=== PATIENT | female | born 1990 | race Caucasian/White ===

== ENCOUNTER 2023-09-02 09:40 | Outpatient (CLI) | payer BC, SELFPAY ==
--- NOTE | 2023-09-02 10:00 | CRLHL7_ITS ---
For Patients: As a result of the Cures Act, medical imaging exams and procedure reports are released immediately into your electronic medical record. You may view this report before your referring provider. If you have questions, please contact your health care provider. Indication: Hip pain Technique: Pelvis and right hip 3 views Comparison: None Findings: Prominent spur formation at the superolateral right femoral head with associated slight flattening of the superolateral femoral subchondral bone. The right acetabular angle is increased with incomplete coverage. SI joints normal. Intact pubic rami. Bone island right femoral neck. 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 Dictated by Pasquale Gibson MD @ 09/02/2023 11:16:20 AM (Electronically Signed)
== END 2023-09-02 09:41 | disposition home or self-care (01) ==
LOC: RAD 09:44
PROVIDERS: Visit Provider Family Medicine
DX: M25.551 Pain in right hip (principal); Q65.89 Other specified congenital deformities of hip
CPT/HCPCS: 73502

== ENCOUNTER 2023-11-28 13:42 | Outpatient (CLI) | payer BC, SELFPAY ==
--- NOTE | 2023-11-28 13:45 | MR_ITS ---
[address] [address] Phone:?[phone] Fax:?[phone] Referring Physician Information: Koko Eden M.D. [address] [place] [id number] Phone:?[phone] Fax:?[phone] Patient:Nhan Quiñones D.O.B:?1990 Sex:?Female Phone:?[phone] [facility] MRN:?[id number] Exam Date:?11/28/2023 EXAM: MRI of the RIGHT HIP, without contrast CLINICAL HISTORY: Ongoing right hip pain. Evaluate osteoarthritis. COMPARISONS: Plain radiographs 09/02/2023. TECHNICAL: MR sequences of the right hip: Axials: PD FS Axial oblique: PD Coronals: PD, T2 Coronal pelvis: T1 and STIR Sagittals: PD and T2 CONTRAST: None SEDATION: None FINDINGS: Pelvis osseous structures: Sacrum: No fracture or destructive osseous lesion is seen of the imaged portions of the sacrum. Sacroiliac joints: Moderate arthritic changes of the anteroinferior aspect of the left sacroiliac joint and mild arthritic changes of the anteroinferior aspect of the right sacroiliac joint may be degenerative in etiology although inflammatory sacroiliitis is not excluded by the imaging appearance. Pubic rami: Unremarkable. Symphysis pubis: There is no evidence of acute osteitis pubis. Labrum: There is complex tearing of the anterosuperior and anterior portion of the right hip labrum and fraying of most of the remainder of the right hip labrum. Hip joint: Physiologic amount of joint fluid. There is extensive near full-thickness and full-thickness chondral loss over the right acetabulum and femoral head greatest anterosuperiorly with associated subchondral cystic changes within both the femoral head and acetabulum. Proximal femur: No fracture, osseous stress injury, avascular necrosis, or suspicious bone marrow signal abnormality is seen. There is right femoral head neck junction osteophytosis. Acetabulum: Coverage: Right lateral center edge (CE) angle measures approximately 16? correcting for coronal pelvic tilt, midline coronal series 5 image 14. Ligamentum teres: Ill-defined partial tearing of the right hip ligamentum teres. Myotendinous structures: Gluteus abductors: The gluteus minimus and medius tendons are unremarkable. Rectus abdominis-adductor longus aponeurosis, adductors, and rectus abdominis: Unremarkable. Hamstrings: Unremarkable. Flexors: The iliopsoas and rectus femoris tendons are intact. Quadratus femoris muscle: Unremarkable. Piriformis muscle: Unremarkable. Gluteal aponeurotic fascia and IT band: Unremarkable. Pelvic soft tissues: There is a probable hemorrhagic right ovarian cyst. IMPRESSION: 1. Marked right hip osteoarthritis with extensive near full-thickness and full- thickness chondral loss over both the acetabulum and femoral head greatest anterosuperiorly, associated subchondral cystic changes within both the femoral head and acetabulum, complex tearing and fraying of most of the right hip labrum, and femoral head neck junction osteophytosis. 2. Right acetabular dysplasia. 3. Moderate arthritic changes of the anteroinferior aspect of the left sacroiliac joint and mild arthritic changes of the anteroinferior aspect of the right sacroiliac joint may be degenerative in etiology although inflammatory sacroiliitis is not excluded by the imaging appearance. 4. Ill-defined partial tearing of the right hip ligamentum teres. 5. No fracture, osseous stress injury, or tendinous pathology of the right hip. RCB Electronically signed on 11/28/2023 4:55:00 PM by Chang Joe M.D.
== END 2023-11-28 13:43 | disposition home or self-care (01) ==
PROVIDERS: Visit Provider Orthopaedic Surgery
DX: M25.551 Pain in right hip (principal); M16.11 Unilateral primary osteoarthritis, right hip; S73.191A Other sprain of right hip, initial encounter
CPT/HCPCS: 73721

== ENCOUNTER 2024-11-20 06:02 | Day surgery (SDC) | payer BC, SELFPAY ==
[2024-11-20] VITALS (43 sets, daily range): BP systolic 69–120; BP diastolic 41–88; PULSE 62–116; RESP 12–22; TEMP 36.3–37.4; O2SAT 89–100; BMI 23.5
[2024-11-20 06:35] LABS: Ur HCG Qualitative* Negative (Negative)
[2024-11-20] MEDS: LACTATED RINGERS 1000 ML 1,000 ML 100 ML IV ×3 (06:40→11:35)
[2024-11-20] MEDS: SODIUM CHLORIDE 0.9 % (FLUSH) 10 ML SYRINGE IVF ×2 (06:40→11:00)
[2024-11-20] MEDS: ACETAMINOPHEN 500 MG TABLET 1000 MG PO ×3 (07:08→20:41)
[2024-11-20] MEDS: OXYCODONE (CR) 10 MG TAB.ER.12H PO (07:08)
[2024-11-20] MEDS: CELECOXIB 200 MG CAPSULE PO (07:08)
[2024-11-20] MEDS: MIDAZOLAM HCL 1 MG/ML inj IVP (07:13)
--- NOTE | 2024-11-20 07:13 | SUR.PREOP ---
TIME?OUT:?0710 PT/RN/MDA?VERIFICATION?OF?SURGICAL?SITE,?PROCEDURE,?AND?CONSENT OBTAINED?PRIOR?TO?INVASIVE?PROCEDURE.
--- NOTE | 2024-11-20 07:15 | CRLHL7_ITS ---
For Patients: As a result of the Cures Act, medical imaging exams and procedure reports are released immediately into your electronic medical record. You may view this report before your referring provider. If you have questions, please contact your health care provider. Indication: Hip replacement surgery Technique: AP hip fluoroscopic images fluoroscopy time 110.3 seconds. Findings/Impression: Hardware from a right total hip arthroplasty is in satisfactory position. Dictated by Pasquale Gibson MD @ 11/20/2024 10:07:58 AM (Electronically Signed)
--- NOTE | 2024-11-20 07:21 | P.ANES_ITS ---
Anesthesia Charges Start Date/Time Anesthesia Start Date: 11/20/24 Anesthesia Start Time: 07:22 Stop Date/Time Anesthesia Stop Date: 11/20/24 Anesthesia Stop Time: 10:37 Coding CPT Codes CPT Codes: ANESTH HIP ARTHROPLASTY - 59534 ([id number]) P1 - NORMAL HEALTHY PATIENT, QK - DATABASE SECURITY EXPERT 2-4 CNCRNT FERNANDA PROC, QX - DIRECTOR OF EMPLOYEE DEVELOPMENT SVSivan W/ MED DIRECTION
--- NOTE | 2024-11-20 07:21 | W.ANESCHARGE ---
Anesthesia Charges Start Date/Time Anesthesia Start Date: 11/20/24 Anesthesia Start Time: 07:22 Stop Date/Time Anesthesia Stop Date: 11/20/24 Anesthesia Stop Time: 10:37 Coding CPT Codes CPT Codes: ANESTH HIP ARTHROPLASTY - 58365 ([id number]) P1 - NORMAL HEALTHY PATIENT, QK - AUTOMOTIVE SALES SPECIALIST 2-4 CNCRNT FERNANDA PROC, QX - HEALTH POLICY NURSE SVSivan W/ MED DIRECTION
--- NOTE | 2024-11-20 07:22 | P.NB_ITS ---
Nerve Block Nerve Block Time Seen by Provider: 07:17 Date Seen: 11/20/24 Type of block requested by surgeon for post-operative analgesia: KATHY/LFCN Side: right Time out performed: Yes Verification of patient name: Yes Verification of date of : Yes Site marking: site marked Name of person performing procedure: Be Continuous monitoring Was continuous monitoring of O2 sat, B/P, surveillance monitor, recorded every 15 minutes?: Yes Procedure Checklist: sterile prep, needles and gloves Ultrasound guided. Images saved: Yes Medications given in 5ml increments after negative aspiration: Marcaine %: 0.25 mL: 15 and Exparel mL: 10 Patient tolerated procedure well: Yes Additional comments: Needle noted below psoas tendon needle noted adjacent to LFCN Block Charges Block Charge (with Pro Fee): Other Periph Nerve Block Use of Ultrasound Machine for Block: Yes- US Guidance/pain block
[2024-11-20] MEDS: TRANEXAMIC ACID 100 MG/ML INJ 1000 MG IV (07:35)
--- NOTE | 2024-11-20 10:19 | CRLHL7_ITS ---
For Patients: As a result of the Cures Act, medical imaging exams and procedure reports are released immediately into your electronic medical record. You may view this report before your referring provider. If you have questions, please contact your health care provider. Indication: Postop SHARLENE Technique: AP hip centered pelvis and lateral view right hip Findings/Impression: Hardware from a right total hip arthroplasty is in satisfactory position. Bone alignment is normal. No sign of acute fracture. Postop changes are within normal limits. Dictated by Pasquale Gibson MD @ 11/20/2024 11:47:22 AM (Electronically Signed)
--- NOTE | 2024-11-20 10:39 | P.ANES_ITS ---
Anesthesia Charges Start Date/Time Anesthesia Start Date: 11/20/24 Anesthesia Start Time: 07:22 Stop Date/Time Anesthesia Stop Date: 11/20/24 Anesthesia Stop Time: 10:37 Coding CPT Codes CPT Codes: ANESTH HIP ARTHROPLASTY - 23319 ([id number]) P1 - NORMAL HEALTHY PATIENT, QK - ADMINISTRATOR PESTICIDE 2-4 CNCRNT FERNANDA PROC, QX - WAREHOUSE ATTENDANT SVSivan W/ MED DIRECTION
--- NOTE | 2024-11-20 10:39 | W.ANESCHARGE ---
Anesthesia Charges Start Date/Time Anesthesia Start Date: 11/20/24 Anesthesia Start Time: 07:22 Stop Date/Time Anesthesia Stop Date: 11/20/24 Anesthesia Stop Time: 10:37 Coding CPT Codes CPT Codes: ANESTH HIP ARTHROPLASTY - 63764 ([id number]) P1 - NORMAL HEALTHY PATIENT, QK - ACTUARIAL DIRECTOR 2-4 CNCRNT FERNANDA PROC, QX - COAT FITTER SVSivan W/ MED DIRECTION
--- NOTE | 2024-11-20 10:40 | P.ORPRC_ITS ---
Procedure Note Date of procedure: 11/20/24 Procedure: PREOPERATIVE DIAGNOSIS: Right hip osteoarthritis POSTOPERATIVE DIAGNOSIS: Right hip osteoarthritis NAME OF OPERATION: Right total hip arthroplasty SURGEON: Koko Eden MD WEB CONTENT MANAGER: Palma Martinez PA-C, MARIA G Khoury IMPLANTS: 1. [employer] Benld # 48 sector ingrowth cup 2. 32 x 48 +4 neutral polyethylene 3. Actis # 3 standard collared ingrowth stem 4. 32 + 1 ceramic femoral head ANESTHESIA: Spinal ESTIMATED BLOOD LOSS: 1250 cc COMPLICATIONS: None SPECIMENS: None DRAINS: None PREOPERATIVE ANTIBIOTICS: Ancef 1 g INDICATIONS: The patient is a 34-year-old with a longstanding history of severe , unrelenting right hip pain secondary to end-stage right hip osteoarthritis. Despite appropriate nonoperative management, including activity modification, use of an assist device, anti-inflammatories, [id number] pain medication, physical therapy and injections, they continue to have pain and disability. Operative intervention was offered. The risks, benefits and expected outcomes were discussed in detail. These included but were not limited to: Infection, bleeding, injury to blood vessel or nerve, venous thromboembolism. All questions were answered to their satisfaction. Use of an liaison inspection laboratory assistant was necessary throughout the case for patient positioning and safety, soft tissue retraction and closure. PROCEDURE: The patient was placed supine on the Champion table. General anesthesia was administered. The liaison inspection laboratory assistant made sure the patient was properly positioned. The right hip was prepped and draped in the usual sterile fashion. The image intensifier was brought in for a perfect AP pelvis and a perfect double tear drop AP view of each hip which were used for intraoperative templating with our fluoroscopic guide. A bikini incision was made, parallel to the hip flexion crease. The liaison inspection laboratory assistant retracted the soft tissues to protect them. Subcutaneous dissection was taken with electrocautery to the superficial fascia. The fascia was divided in line with the incision. Blunt dissection was carried medially to the tensor fascia leobardo and sartorius interval. Deep dissection was carried with electrocautery. The circumflex vessels were cauterized and divided. The capsule was exposed and then divided in a T-fashion, tagged with #1 FiberWire sutures. Retractors were placed in the joint, held by the liaison inspection laboratory assistant. The corkscrew was placed in the femoral head. The neck cut was made in the subcapital region. We made a second neck cut more distal. The napkin ring of bone was removed. The femoral head was removed intact. Acetabular retractors were placed, held by the liaison inspection laboratory assistant. The labrum was sharply debrided. The capsule was released. The 43 mm reamer was used to the true medial wall. We then enlarged in 2 mm increments using the image intensifier for our reamer placement. We impacted the cup which given the acetabular dysplasia, had reasonable purchase. We placed 2 screws into the ilium: 1 measuring 6.5 x 40 mm, the other measuring 6.5 x 25 mm. This provided excellent fixation of the cup. We placed the polyethylene. Attention was then turned to the proximal femur. The limb was placed in 140 degrees of external rotation, maximum extension and adduction. The capsule was mobilized to allow us to deliver the femur into the wound and complete the femoral side. Retractors were held by the liaison inspection laboratory assistant throughout the femoral preparation. The drip box tender and canal finder were used. Broaches were used to a stable size. The calcar reamer was used. Trial components were placed. The hip was reduced and was found to be stable with appropriate soft tissue tension. Length and offset had been nicely restored using the image intensifier and our fluoroscopic guide. Trial components were removed. The stem was impacted. We placed the femoral head. Again, the hip was reduced and was found to be stable with appropriate soft tissue tension. Length and offset had been nicely restored. The liaison inspection laboratory assistant did a three minute dilute Betadine solution soak. The liaison inspection laboratory assistant irrigated the wound with 3 liters of normal saline via pulse lavage. The liaison inspection laboratory assistant repaired the anterior capsule with a #1 Vicryl and our previously placed Ethibond sutures. The liaison inspection laboratory assistant closed the fascia over the tensor fascia leobardo with a #1 PDO Stratafix, subcutaneous tissues with 2-0 Vicryl, skin with a running 3-0 Stratafix and glue. A dry dressing was applied by the liaison inspection laboratory assistant. Sponge and needle counts were correct x 2. The patient tolerated the procedure well; there were no apparent complications. They were awakened and extubated in the operating room, sent to the Post-Anesthesia Care Unit in satisfactory condition. PLAN: 1. The patient will be mobilized with physical therapy, weight-bearing as tolerates 2. Xarelto x 5 days then aspirin x 30 days will be used for DVT prophylaxis 3. The patient will be discharged once medically appropriate
[2024-11-20] MEDS: PHENYLEPHRINE 100 MCG/ML SYRINGE IVP (11:07)
--- NOTE | 2024-11-20 11:48 | SUR.PHASEI ---
Patient was given 250 ml of albumin, Blood Pressure improved. Patient is awake and more comfortable, moving about in bed turning side to side. Toes feel normal and good movement. Patient meets discharge criteria from PACU.
[2024-11-20 12:10] LABS: Hematocrit 29.8 % (33.0-51.0); Hemoglobin* 10.0 gm/dL (12.0-16.0); Immature Granulocytes Abs Auto 0.30 K/uL (0.00-0.30); Immature Granulocytes Pct Auto 0.9 %; Mean Corpuscular HGB Conc 34 gm/dL (32-36); Mean Corpuscular Hemoglobin 31 pg (26-34); Mean Corpuscular Volume 94 fL (80-100); RDW Coefficient of Variation % 11.7 % (11.5-15.5); Red Blood Count 3.18 m/uL (4.00-5.20)
[2024-11-20 12:31] LABS: Lymphocytes Absolute Auto 1.00 K/uL (0.90-2.90); White Blood Count* 32.46 K/uL (4.50-11.00)
[2024-11-20 12:32] LABS: Slide Review Reflex Yes
[2024-11-20 12:33] LABS: Slide Review Acceptable Review (Acceptable)
--- NOTE | 2024-11-20 14:20 | SUR.PHASEII ---
Patient up to ambulate to BR around 1345, pt did void and when up to ambulate back to room pt became diaphoretic and reported warmth, lightheadedness. [facility]isted [facility] Director did get w/c for transfer back to room and flat to bed. BP's 80's/50's, fluids hooked back up pt about to finish 3rd liter of fluids. report given to and Radha on /S. Patient will be going to room 261 on m/s. Tristin updated and verbalized understanding.
[2024-11-20] MEDS: LACTATED RINGERS 1000 ML 1,000 ML 75 ML IV ×2 (14:35→15:02)
[2024-11-20] MEDS: CEFAZOLIN 1 GM in 0.9 % SODIUM CHLORIDE Mini-bag 100 ML IVPB ×2 (15:02→23:23)
[2024-11-20 15:50] LABS: HCO3 VBG 26 mmol/L (21-28); Lactate* 1.9 mmol/L (0.5-1.9); PCO2 VBG 46 mmHG (40-50); PO2 VBG < 30.1 mmHG (25-47); pH VBG 7.363 (7.32-7.43)
[2024-11-20 16:09] LABS: Chloride* 101 mmol/L (96-114); Potassium* 4.0 mmol/L (3.6-5.1); Sodium* 131 mmol/L (135-149)
--- NOTE | 2024-11-20 16:09 | P.IMHP_ITS ---
Assessment and Plan Assessment and plan (1) History of total right hip arthroplasty: Problem comment: DOS: 11/20/24, Dr. Eden indication: congenital hip dysplasia No complications other than blood loss Status: Acute (2) ABLA (acute blood loss anemia): Problem comment: -1250cc blood loss; unclear pre-op level -no previous issues with blood loss (2 vaginal births, breast surgery x 2, no heavy periods, no fam hx of VWB) -track hemoglobin, resusitate with fluids to euvolemia Status: Acute (3) Leukocytosis: Problem comment: -pt unaware of any previous issues. CRP normal; lactate and VBG normal. No fever. -likely stress demargination; follow. Status: Acute (4) Hyponatremia: Problem comment: -follow; will switch to NS from LR Status: Acute Hospitalist- H&P: HPI History of Present Illness Time Seen by Provider: 15:10 Date Seen: 11/20/24 Chief complaint: Total Hip-Right Narrative: ADMISSION HISTORY AND PHYSICAL - HOSPITALIST Chief Complaint: Acute blood loss postsurgical associated with significant leukocytosis, hypotension HPI: 34-year-old female with a history of congenital hip dysplasia, affecting her right hip most significantly, presents for or routine scheduled total hip arthroplasty. The surgery was uncomplicated but there was more than expected intraoperative bleeding that was adeptly addressed by our surgical team. Two 1 g doses of TXA were given during surgery. She had 2 L of lactated Ringer's given. Initially her postop blood pressure was 120/61. Pulse was 116. Her postop hemoglobin was 10.0. It does not appear that she had a preop hemoglobin at her preop physical. This was done at [facility]. The [facility] is unavailable for review. She has no [facility] record and no previous records with us. Her past medical history is unremarkable. She has been taking Mobic as an anti- inflammatory for her hip pain. She has an IUD. She takes fish oils as a supplement. Both the Mobic and fish oils were stopped prior to surgery. She has a history of cervical dysplasia and colposcopy. Her only other surgeries include a breast reduction and breast implants. She has also had a tonsil adenoidectomy. 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 She is with 2 children. She reports no previous history of bleeding problems. She has never received transfusion. She has had 2 vaginal births, 2 breast surgeries and a tonsil surgery. She has never been told she is anemic or has von Willebrand's or anyone in her family having von Willebrand's. While she has an IUD, she has no history of menorrhagia. Upon postop recovery, she was noted to have a hemoglobin of 10. A white blood cell count of 32. Soft blood pressures that dropped down into the 80s systolic. She felt flushed. No syncope or dizziness noted. It was decided that she should have a med surge recovery, overnight stay/observation. NAME OF OPERATION: Right total hip arthroplasty SURGEON: Koko Eden MD ANESTHESIA: Spinal ESTIMATED BLOOD LOSS: 1250 cc COMPLICATIONS: None SPECIMENS: None DRAINS: None ER COURSE: N/A CODE STATUS: Full code PCP: She lives in [facility]. Outside PCP. No [facility] record. EMERGENCY CONTACT PLAN: was bedside I've updated the PFSH, medications and allergies in the [facility] tabs. INVESTIGATIONS: LABS/MICRO/ECG/IMAGING Reviewing the OR record - 1250 Postop, 12 noon, hemoglobin was 10.0. Interestingly her white blood cell count was 32.46. 92.8% neutrophils. -of note there was no [facility] record, no previous labs in our EMR. -MCV 94. -normal blood gas -mild hyponatremia 131. Normal kidney function. More glucose 153. -normal lactate, normal CRP -hCG negative Previous hip MRI reviewed. November 2023 1. Marked right hip osteoarthritis with extensive near full-thickness and full- thickness chondral loss over both the acetabulum and femoral head greatest anterosuperiorly, associated subchondral cystic changes within both the femoral head and acetabulum, complex tearing and fraying of most of the right hip labrum, and femoral head neck junction osteophytosis. 2. Right acetabular dysplasia. 3. Moderate arthritic changes of the anteroinferior aspect of the left sacroiliac joint and mild arthritic changes of the anteroinferior aspect of the right sacroiliac joint may be degenerative in etiology although inflammatory sacroiliitis is not excluded by the imaging appearance. 4. Ill-defined partial tearing of the right hip ligamentum teres. 5. No fracture, osseous stress injury, or tendinous pathology of the right hip. REVIEW OF SYSTEMS: 12-point ROS completed with patient and negative unless otherwise stated in HPI or below. PHYSICAL EXAM: CONSTITUTIONAL: Conversive, good historian. A/O. Knows setting and context. GENERAL: Well-developed and above ideal body weight, in no respiratory distress. VITAL SIGNS: Systolic blood pressures have been mid 80s systolic. Pulse 70s and 80s. Respiratory rate 16, unlabored on room air. Pulse ox has been 100%. She is afebrile HEENT: Sclerae are anicteric. No petechiae. CARDIAC: rhythm is regular. There is no S3 or rub. No harsh murmurs. Extremities show trace edema with symmetrical pulses. PULM: good air entry with no wheeze. Right hip: Surgical dressing is intact. There is no drain, bandage is dry without bleeding obvious. NEURO: Speech is fluent. A brief neurologic exam is negative. SKIN: No rashes, petechiae, concerning changes PSYCHIATRIC: Euthymic. ADMIT TO MEDSURG: FLOOR CARE DVT: Xarelto once bleeding and ABLA are stable. GI: PO intake Time spent: Today I spent 75 minutes seeing the patient, discussing the patient with ER staff, reviewing [facility] and EPIC notes/diagnostics, discussing the care plan with our care time that includes social work, PT/OT, pharmacy, RT, longterm and documenting my impressions and plan in the medical record. Medical Decision Making Medical Decision Making Has patient completed a Health Care Directive: Yes [facility] Medical History (Updated 11/20/24 @ 16:52 by Fawn Anderson MD) Osteoarthritis of right hip ?M16.11 - Unilateral primary osteoarthritis, right hip (ICD-10) Cervical dysplasia ?N87.9 - Dysplasia of cervix uteri, unspecified (ICD-10) Surgical History (Updated 11/20/24 @ 16:52 by Fawn Anderson MD) History of total right hip arthroplasty ?Z96.641 - Presence of right artificial hip joint (ICD-10) H/O bilateral breast reduction surgery ?Z98.890 - Other specified postprocedural states (ICD-10) History of tonsillectomy ?Z90.89 - Acquired absence of other organs (ICD-10) Social History (Updated 11/14/23 @ 09:22 by Love Dorsey ~ [facility], 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 unknown family Hx Smoking Status: Never smoker Do you use any of these nicotine containing products: None Second hand tobacco smoke exposure: No How often do you have a drink containing alcohol: 2-4 times a month How often do you have six or more drinks on one occasion: Never AUDIT-C Alcohol total score: 2 Non-prescribed substance use: denies use Caffeine: Yes Are you using contraception or practicing any form of control: Yes (Mirena) Meds Home Medications and Allergies Home Medications ?Medication ?Instructions ?Recorded ?Confirmed ?Type meloxicam 7.5 mg tablet 7.5 mg PO BID PRN 11/14/23 0 11/20/24 History Held on 11/20/24. Instructions: was taking it before surgery acetaminophen 500 mg tablet 500 - 1,000 mg (1 - 2 x 50 0 mg) PO 11/16/24 11/20/24 Rx Held on 11/20/24. Q6H PRN pain #100 tabs Instructions: post op aspirin 81 mg tablet 81 mg PO QDAY DVT prophylaxi s #60 11/16/24 11/20/24 Rx Held on 11/20/24. tabs Instructions: post op docosahexaenoic acid (dha)-epa 120 1 cap PO DAILY 12/0311/16/24 History mg-180 mg capsule levonorgestrel (Mirena) 1 device intrauterine History oxycodone 5 mg tablet 2.5 - 5 mg (0.5 - 1 x 5 mg) PO 11/16/24 11/20/24 Rx Held on 11/20/24. Q4-6H PRN pain #40 tabs Instructions: post op rivaroxaban 10 mg tablet (Xarelto) 10 mg PO QDAY #5 ta bs 11/16/24 11/20/24 Rx Held on 11/20/24. Instructions: post op sennosides 8.6 mg tablet (Senna 17.2 mg (2 x 8.6 mg) P O BID PRN 11/16/24 11/20/24 Rx Laxative) constipation #100 tabs Held on 11/20/24. Instructions: post op Allergies Allergy/AdvReac Type Severity Reaction Status Date / Time No Known Drug Allergies Allergy Verified 11/20/24 06:51 Exam Const: Vital Signs, click to edit/add: Vital Signs - 24 hr 11/20/24 06:40 11/20/24 10:33 11/20/24 10:35 Temperature 98.2 F Pulse Rate 78 110 H 114 H Pulse Rate [Right Pulse Oximeter] Respiratory Rate 16 16 16 Blood Pressure 104/72 120/61 107/57 L Blood Pressure [Le ft Arm] Pulse Oximetry 100 96 96 Oxygen Delivery Me thod Room Air Aerosol Mask Oxygen Flow Rate 6 11/20/24 10:40 11/20/24 10:45 11/20/24 10:50 Temperature Pulse Rate 116 H 115 H 94 Pulse Rate [Right Pulse Oximeter] Respiratory Rate 12 12 14 Blood Pressure 87/51 L 69/43 L 77/54 L Blood Pressure [Le ft Arm] Pulse Oximetry 99 100 100 Oxygen Delivery Me thod Oxygen Flow Rate 11/20/24 10:51 11/20/24 10:53 11/20/24 11:00 Temperature Pulse Rate 99 88 86 Pulse Rate [Right Pulse Oximeter] Respiratory Rate 20 15 15 Blood Pressure 83/52 L 98/61 96/41 L Blood Pressure [Le ft Arm] Pulse Oximetry 100 95 96 Oxygen Delivery Me thod Nasal Cannula Oxygen Flow Rate 2 11/20/24 11:02 11/20/24 11:07 11/20/24 11:10 Temperature Pulse Rate 86 89 84 Pulse Rate [Right Pulse Oximeter] Respiratory Rate 16 17 14 Blood Pressure 88/47 L 81/58 L 86/56 L Blood Pressure [Le ft Arm] Pulse Oximetry 97 97 95 Oxygen Delivery Me thod Nasal Cannula Oxygen Flow Rate 2 11/20/24 11:15 11/20/24 11:20 11/20/24 11:25 Temperature Pulse Rate 79 89 80 Pulse Rate [Right Pulse Oximeter] Respiratory Rate 14 22 16 Blood Pressure 78/60 L 83/73 L 87/53 L Blood Pressure [Le ft Arm] Pulse Oximetry 89 89 93 Oxygen Delivery Me thod Room Air Room Air Nasal Cannula Oxygen Flow Rate 2 11/20/24 11:30 11/20/24 11:35 11/20/24 11:40 Temperature 99.4 F Pulse Rate 84 79 79 Pulse Rate [Right Pulse Oximeter] Respiratory Rate 19 14 14 Blood Pressure 86/55 L 96/57 L 93/50 L Blood Pressure [Le ft Arm] Pulse Oximetry 100 92 98 Oxygen Delivery Me thod Room Air Room Air Oxygen Flow Rate 0 0 11/20/24 11:45 11/20/24 11:54 11/20/24 12:00 Temperature 98.4 F Pulse Rate 86 84 88 Pulse Rate [Right Pulse Oximeter] Respiratory Rate 14 16 16 Blood Pressure 97/56 L 88/61 L 90/55 L Blood Pressure [Le ft Arm] Pulse Oximetry 98 92 95 Oxygen Delivery Me thod Room Air Room Air Room Air Oxygen Flow Rate 0 11/20/24 12:15 11/20/24 12:30 11/20/24 12:45 Temperature 99.0 F Pulse Rate 75 75 76 Pulse Rate [Right Pulse Oximeter] Respiratory Rate 14 16 16 Blood Pressure 92/88 91/56 L 88/54 L Blood Pressure [Le ft Arm] Pulse Oximetry 97 98 97 Oxygen Delivery Me thod Room Air Room Air Room Air Oxygen Flow Rate 11/20/24 13:00 11/20/24 13:30 11/20/24 13:46 Temperature Pulse Rate 78 77 Pulse Rate [Right Pulse Oximeter] Respiratory Rate 14 14 14 Blood Pressure 89/57 L 95/54 L 87/46 L Blood Pressure [Le ft Arm] Pulse Oximetry 100 100 100 Oxygen Delivery Tx thod Room Air Room Air Room Air Oxygen Flow Rate 0 0 11/20/24 14:05 11/20/24 14:35 11/20/24 14:51 Temperature 99.0 F 97.4 F L Pulse Rate 70 84 Pulse Rate [Right Pulse Oximeter] 82 Respiratory Rate 14 16 16 Blood Pressure 85/51 L 87/57 L Blood Pressure [Le ft Arm] 91/61 Pulse Oximetry 98 95 100 Oxygen Delivery Me thod Room Air Room Air Room Air Oxygen Flow Rate 0 Hospitalist - H&P: Result Labs Labs: Short CBC 11/20/24 Range/Units 12:05 WBC 32.46 H* (4.50-11.00) K/uL Hgb 10.0 L (12.0-16.0) gm/dL Hct 29.8 L (33.0-51.0) % Plt Count 332 (140-440) K/uL
[2024-11-20 16:13] LABS: Anion Gap 3 mEq/L (7-15); Blood Urea Nitrogen* 17 mg/dL (5-24); Calcium* 8.2 mg/dL (8.4-10.6); Carbon Dioxide* 27 mmol/L (20-32); Creatinine* 0.6 mg/dL (0.5-1.5); Est. Creatinine Clearance* 116.24; Estimated Glomerular Filt Rate 122 ml/min; Glucose* 153 mg/dL (60-115)
[2024-11-20] MEDS: ONDANSETRON 2 MG/ML inj 4 MG IVP (18:10)
[2024-11-20 18:43] LABS: Hemoglobin* 7.8 gm/dL (12.0-16.0)
--- NOTE | 2024-11-20 19:40 | PC.NURSE ---
End of shift report [id number]: Pleasant and cooperative with cares. Pain to right hip well managed with current regimen. Dressing clean, dry and intact. Denies any nausea, lightheadedness or dizziness. Pallor in color and extremities cool. Educated on labs and treatments. Transfers and ambulates with SBA with walker and gait belt. Denies any dizziness with ambulation. Tolerating food and fluids well.
[2024-11-20 23:17] LABS: Hemoglobin* 7.1 gm/dL (12.0-16.0)
[2024-11-21] VITALS (10 sets, daily range): BP systolic 87–97; BP diastolic 52–63; PULSE 76–114; RESP 14–18; TEMP 36.8–37.2; O2SAT 95–99
[2024-11-21] MEDS: 0.9 % SODIUM CHLORIDE 500 ML 250 ML IV (00:37)
[2024-11-21] MEDS: ACETAMINOPHEN 500 MG TABLET 1000 MG PO ×2 (02:50→08:35)
--- NOTE | 2024-11-21 05:54 | PC.NURSE ---
End of shift report [id number]: Pt is pleasant and cooperative. Pt has been hypotensive throughout the night. MD Anderson notified regarding the hypotension, likely physiologic, no new orders. Pt remained asymptomatic denies nausea and dizziness. Afebrile. Pt ambulates SBA with GB and W to BR. Pt rates pain from a 5-4/10, prn pain meds offered and given with relief as well as intermittent ice. Tolerating regular diet. R hip dressing is C/D/I. Consent for blood transfusion?completed and pt received 1 unit of blood overnight, no transfusion reaction symptoms noted. Pt is resting in bed, call light within reach.?
[2024-11-21 06:33] LABS: Hematocrit 23.3 % (33.0-51.0); Immature Granulocytes Pct Auto 0.4 %; Mean Corpuscular HGB Conc 34 gm/dL (32-36); Mean Corpuscular Hemoglobin 32 pg (26-34); Mean Corpuscular Volume 93 fL (80-100); RDW Coefficient of Variation % 12.0 % (11.5-15.5); Red Blood Count 2.50 m/uL (4.00-5.20); White Blood Count* 11.17 K/uL (4.50-11.00)
[2024-11-21 06:46] LABS: Chloride* 107 mmol/L (96-114); Potassium* 3.6 mmol/L (3.6-5.1); Sodium* 135 mmol/L (135-149)
[2024-11-21 06:49] LABS: Anion Gap 1 mEq/L (7-15); Blood Urea Nitrogen* 12 mg/dL (5-24); Calcium* 8.0 mg/dL (8.4-10.6); Carbon Dioxide* 27 mmol/L (20-32); Creatinine* 0.6 mg/dL (0.5-1.5); Est. Creatinine Clearance* 116.24; Estimated Glomerular Filt Rate 122 ml/min; Glucose* 93 mg/dL (60-115)
[2024-11-21 06:50] LABS: Immature Granulocytes Abs Auto 0.00 K/uL (0.00-0.30); Lymphocytes Absolute Auto 2.90 K/uL (0.90-2.90)
[2024-11-21 06:51] LABS: Hemoglobin* 7.9 gm/dL (12.0-16.0); Slide Review Reflex No
[2024-11-21] MEDS: RIVAROXABAN 10 MG TABLET PO (08:34)
--- NOTE | 2024-11-21 09:18 | PM.ORPN ---
Subjective Subjective Time Seen by Provider: 07:30 Date Seen: 11/21/24 Principal diagnosis: Status post right hip replacement, postoperative anemia Interval history: The patient is comfortable. She has some thigh numbness. She has been up to the restroom 3 times since surgery she states. Ortho Exam Narrative Exam Narrative: Alert and oriented x3. Patient is in no acute distress. Converses without labored breathing. Hearing is grossly intact. Ambulates with a walker. Examination of the right hip shows the dressing is intact. No erythema or warmth or sign of infection. Edema is present about hip area. No edema about the mid and distal thigh and lower leg. Calves are soft and nontender. CMS otherwise intact right lower extremity. Const Vital Signs, click to edit/add: Vital Signs - 24 hr 11/20/24 10:33 11/20/24 10:35 11/20/24 10:40 Temperature 98.2 F Pulse Rate 110 H 114 H 116 H Pulse Rate [Right Pulse Oximeter] Respiratory Rate 16 16 12 Blood Pressure 120/61 107/57 L 87/51 L Blood Pressure [Left Arm] Pulse Oximetry 96 96 99 Oxygen Delivery Method Aerosol Mask Oxygen Flow Rate 6 11/20/24 10:45 11/20/24 10:50 11/20/24 10:51 Temperature Pulse Rate 115 H 94 99 Pulse Rate [Right Pulse Oximeter] Respiratory Rate 12 14 20 Blood Pressure 69/43 L 77/54 L 83/52 L Blood Pressure [Left Arm] Pulse Oximetry 100 100 100 Oxygen Delivery Method Oxygen Flow Rate 11/20/24 10:53 11/20/24 11:00 11/20/24 11:02 Temperature Pulse Rate 88 86 86 Pulse Rate [Right Pulse Oximeter] Respiratory Rate 15 15 16 Blood Pressure 98/61 96/41 L 88/47 L Blood Pressure [Left Arm] Pulse Oximetry 95 96 97 Oxygen Delivery Method Nasal Cannula Oxygen Flow Rate 2 11/20/24 11:07 11/20/24 11:10 11/20/24 11:15 Temperature Pulse Rate 89 84 79 Pulse Rate [Right Pulse Oximeter] Respiratory Rate 17 14 14 Blood Pressure 81/58 L 86/56 L 78/60 L Blood Pressure [Left Arm] Pulse Oximetry 97 95 89 Oxygen Delivery Method Nasal Cannula Room Air Oxygen Flow Rate 2 11/20/24 11:20 11/20/24 11:25 11/20/24 11:30 Temperature Pulse Rate 89 80 84 Pulse Rate [Right Pulse Oximeter] Respiratory Rate 22 16 19 Blood Pressure 83/73 L 87/53 L 86/55 L Blood Pressure [Left Arm] Pulse Oximetry 89 93 100 Oxygen Delivery Method Room Air Nasal Cannula Room Air Oxygen Flow Rate 2 0 11/20/24 11:35 11/20/24 11:40 11/20/24 11:45 Temperature 99.4 F Pulse Rate 79 79 86 Pulse Rate [Right Pulse Oximeter] Respiratory Rate 14 14 14 Blood Pressure 96/57 L 93/50 L 97/56 L Blood Pressure [Left Arm] Pulse Oximetry 92 98 98 Oxygen Delivery Method Room Air Room Air Oxygen Flow Rate 0 0 11/20/24 11:54 11/20/24 12:00 11/20/24 12:15 Temperature 98.4 F Pulse Rate 84 88 75 Pulse Rate [Right Pulse Oximeter] Respiratory Rate 16 16 14 Blood Pressure 88/61 L 90/55 L 92/88 Blood Pressure [Left Arm] Pulse Oximetry 92 95 97 Oxygen Delivery Method Room Air Room Air Room Air Oxygen Flow Rate 11/20/24 12:30 11/20/24 12:45 11/20/24 13:00 Temperature 99.0 F Pulse Rate 75 76 Pulse Rate [Right Pulse Oximeter] Respiratory Rate 16 16 14 Blood Pressure 91/56 L 88/54 L 89/57 L Blood Pressure [Left Arm] Pulse Oximetry 98 97 100 Oxygen Delivery Method Room Air Room Air Room Air Oxygen Flow Rate 11/20/24 13:30 11/20/24 13:46 11/20/24 14:05 Temperature 99.0 F Pulse Rate 78 77 70 Pulse Rate [Right Pulse Oximeter] Respiratory Rate 14 14 14 Blood Pressure 95/54 L 87/46 L 85/51 L Blood Pressure [Left Arm] Pulse Oximetry 100 100 98 Oxygen Delivery Method Room Air Room Air Room Air Oxygen Flow Rate 0 0 0 11/20/24 14:35 11/20/24 14:51 11/20/24 15:00 Temperature 97.4 F L Pulse Rate 84 Pulse Rate [Right Pulse Oximeter] 82 Respiratory Rate 16 16 Blood Pressure 87/57 L Blood Pressure [Left Arm] 91/61 Pulse Oximetry 95 100 100 Oxygen Delivery Method Room Air Room Air Room Air Oxygen Flow Rate 11/20/24 15:06 11/20/24 15:21 11/20/24 15:36 Temperature 98.6 F 98.7 F 98.5 F Pulse Rate Pulse Rate [Right Pulse Oximeter] 71 63 71 Respiratory Rate 16 15 18 Blood Pressure Blood Pressure [Left Arm] 97/61 93/46 L 97/59 L Pulse Oximetry 100 100 100 Oxygen Delivery Method Room Air Room Air Room Air Oxygen Flow Rate 0 0 11/20/24 16:06 11/20/24 16:36 11/20/24 17:36 Temperature 98.5 F 98.8 F 98.5 F Pulse Rate Pulse Rate [Right Pulse Oximeter] 62 91 86 Respiratory Rate 16 15 16 Blood Pressure Blood Pressure [Left Arm] 88/51 L 84/52 L 81/53 L Pulse Oximetry 99 100 100 Oxygen Delivery Method Room Air Room Air Room Air Oxygen Flow Rate 0 0 11/20/24 18:36 11/20/24 19:45 11/20/24 20:12 Temperature 98.9 F 98.8 F Pulse Rate Pulse Rate [Right Pulse Oximeter] 101 H 91 91 Respiratory Rate 16 16 16 Blood Pressure Blood Pressure [Left Arm] 83/52 L 90/51 L Pulse Oximetry 98 98 Oxygen Delivery Method Room Air Oxygen Flow Rate 11/20/24 20:45 11/20/24 22:36 11/20/24 22:41 Temperature 98.8 F 98.2 F Pulse Rate Pulse Rate [Right Pulse Oximeter] 97 85 Respiratory Rate 16 14 14 Blood Pressure Blood Pressure [Left Arm] 94/52 L 89/51 L Pulse Oximetry 100 99 99 Oxygen Delivery Method Room Air Room Air Room Air Oxygen Flow Rate 0 0 0 11/21/24 00:29 11/21/24 00:51 11/21/24 01:21 Temperature 98.9 F 98.2 F 98.3 F Pulse Rate 84 89 77 Pulse Rate [Right Pulse Oximeter] Respiratory Rate 16 16 16 Blood Pressure 87/53 L 93/58 L 90/54 L Blood Pressure [Left Arm] Pulse Oximetry 99 98 97 Oxygen Delivery Method Room Air Room Air Room Air Oxygen Flow Rate 0 0 11/21/24 01:51 11/21/24 02:21 11/21/24 02:37 Temperature 99 F 98.6 F 98.4 F Pulse Rate 80 76 81 Pulse Rate [Right Pulse Oximeter] Respiratory Rate 14 16 16 Blood Pressure 89/52 L 88/56 L 87/54 L Blood Pressure [Left Arm] Pulse Oximetry 99 99 98 Oxygen Delivery Method Room Air Room Air Room Air Oxygen Flow Rate 0 0 0 11/21/24 02:59 11/21/24 03:37 11/21/24 07:45 Temperature 98.4 F 98.6 F Pulse Rate 80 Pulse Rate [Right Pulse Oximeter] 81 Respiratory Rate 16 14 14 Blood Pressure 88/53 L Blood Pressure [Left Arm] 87/54 L Pulse Oximetry 98 99 97 Oxygen Delivery Method Room Air Room Air Room Air Oxygen Flow Rate 0 11/21/24 07:45 11/21/24 07:45 Temperature 98.4 F Pulse Rate Pulse Rate [Right Pulse Oximeter] 91 91 Respiratory Rate 18 18 Blood Pressure Blood Pressure [Left Arm] 92/63 Pulse Oximetry 97 Oxygen Delivery Method Room Air Oxygen Flow Rate 0 Assessment and Plan Assessment and plan (1) ABLA (acute blood loss anemia): Problem details: -1250cc blood loss; unclear pre-op level -no previous issues with blood loss (2 vaginal births, breast surgery x 2, no heavy periods, no fam hx of VWB) -track hemoglobin, resusitate with fluids to euvolemia Status: Acute (2) History of total right hip arthroplasty: Problem details: DOS: 11/20/24, Dr. Eden indication: congenital hip dysplasia No complications other than blood loss Status: Acute Assessment and Plan: Plan for discharge is today, when she meets discharge criteria. DVT prophylaxis upon discharge [includes Xarelto 10mg daily for a total of 5 days, then Aspirin 81mg twice daily for 30 days]. Remove dressing 1 week. Observe wound and phone Orthopedics with any questions or concerns Use Ice on operative hip unrestricted. Return to clinic in 7-10 days for a wound check Return to clinic in 6 weeks with surgeon Minimize narcotic use. Wean off and discontinue soon as possible. Activities as tolerated. No strenuous activity. Attend outpt PT Her orthopedic postop medications have been sent to her pharmacy in advance. She has oxycodone and Xarelto with her today. 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 We discussed that once her block wears off she will have likely increased pain for several days before pain level improves. Hemoglobin of 7.9 will improve over time. After discharge She will return to the hospital and or call Orthopedics with any concerns.
--- NOTE | 2024-11-21 11:02 | PC.NURSE ---
discharge. pt is alert x4. Pt is very pleasant and cooperative. pain 3-6/10 she is getting po pain Meds with relief. Pt has been hypotensive pt denies nausea and dizziness, lightheadedness or any symptoms. Pt up with SBA, GB and Walker. active ice, is on. she was sent home with 2 ice. Tolerating regular diet. R inner hip dressing is C/D/I. call light within reach.? went over discharge packet with pt. went over meds, instructions, appointments and education. SL was d/c intact. she got pain meds on discharge. she got w/c ride to car and was helped into car. her walker was also sent home.
--- NOTE | 2024-11-21 12:05 | PM.IMPN1 ---
Assessment and Plan Assessment and plan (1) History of total right hip arthroplasty: Problem comment: DOS: 11/20/24, Dr. Eden indication: congenital hip dysplasia No complications other than blood loss Status: Acute (2) ABLA (acute blood loss anemia): Problem comment: -1250cc blood loss; unclear pre-op level. Relatively low blood pressure postop -no previous issues with blood loss (2 vaginal births, breast surgery x 2, no heavy periods, no fam hx of VWB) Postop hemoglobin 10. Evening after surgery hemoglobin 7.1. Received 1 unit blood transfusion. Hemoglobin 7.9 this morning. No lightheadedness or tachycardia. Status: Acute (3) Leukocytosis: Problem comment: -pt unaware of any previous issues. CRP normal; lactate and VBG normal. No fever. No symptoms of illness. -likely stress demargination; follow. White count 32,000 postop. White count 11,000 this morning Status: Acute (4) Hyponatremia: Problem comment: Resolved Status: Acute Plan Patient will be discharged to home for outpatient follow-up. She is feeling well and has no concerns. Total Time Spent Total Time Spent: Total time spent today is 35 minutes in coordination of care and discussing with patient and other providers ongoing evaluation management of postop care and anemia Subjective Date Seen: 11/21/24 Interval history: 34-year-old female admitted to the hospital for right hip arthroplasty. Procedures complicated by excessive bleeding. She was hypotensive and had acute blood loss anemia. Hemoglobin dropped to 7.1 last night. She received blood unit of blood transfusion overnight. Hemoglobin this morning is 7.9. She reports feeling well this morning. She reports being up walking without lightheadedness or dyspnea. She did well with therapy. Excellent urine output overnight Exam Narrative: Exam Narrative: She is alert and appears in no distress. Hip is examined. She has some swelling without obvious redness bruising or drainage on the dressing. She moves her lower extremities well. Const: Vital Signs, click to edit/add: Vital Signs - 24 hr 11/20/24 12:15 11/20/24 12:30 11/20/24 12:45 Temperature 99.0 F Pulse Rate 75 75 76 Pulse Rate [Right Pulse Oximeter] Respiratory Rate 14 16 16 Blood Pressure 92/88 91/56 L 88/54 L Blood Pressure [Le ft Arm] Pulse Oximetry 97 98 97 Oxygen Delivery Me thod Room Air Room Air Room Air Oxygen Flow Rate 11/20/24 13:00 11/20/24 13:30 11/20/24 13:46 Temperature Pulse Rate 78 77 Pulse Rate [Right Pulse Oximeter] Respiratory Rate 14 14 14 Blood Pressure 89/57 L 95/54 L 87/46 L Blood Pressure [Le ft Arm] Pulse Oximetry 100 100 100 Oxygen Delivery Me thod Room Air Room Air Room Air Oxygen Flow Rate 0 0 11/20/24 14:05 11/20/24 14:35 11/20/24 14:51 Temperature 99.0 F 97.4 F L Pulse Rate 70 84 Pulse Rate [Right Pulse Oximeter] 82 Respiratory Rate 14 16 16 Blood Pressure 85/51 L 87/57 L Blood Pressure [Le ft Arm] 91/61 Pulse Oximetry 98 95 100 Oxygen Delivery Me thod Room Air Room Air Room Air Oxygen Flow Rate 0 11/20/24 15:00 11/20/24 15:06 11/20/24 15:21 Temperature 98.6 F 98.7 F Pulse Rate Pulse Rate [Right Pulse Oximeter] 71 63 Respiratory Rate 16 15 Blood Pressure Blood Pressure [Le ft Arm] 97/61 93/46 L Pulse Oximetry 100 100 100 Oxygen Delivery Me thod Room Air Room Air Room Air Oxygen Flow Rate 0 11/20/24 15:36 11/20/24 16:06 11/20/24 16:36 Temperature 98.5 F 98.5 F 98.8 F Pulse Rate Pulse Rate [Right Pulse Oximeter] 71 62 91 Respiratory Rate 18 16 15 Blood Pressure Blood Pressure [Le ft Arm] 97/59 L 88/51 L 84/52 L Pulse Oximetry 100 99 100 Oxygen Delivery Me thod Room Air Room Air Room Air Oxygen Flow Rate 0 0 11/20/24 17:36 11/20/24 18:36 11/20/24 19:45 Temperature 98.5 F 98.9 F 98.8 F Pulse Rate Pulse Rate [Right Pulse Oximeter] 86 101 H 91 Respiratory Rate 16 16 16 Blood Pressure Blood Pressure [Le ft Arm] 81/53 L 83/52 L 90/51 L Pulse Oximetry 100 98 98 Oxygen Delivery Me thod Room Air Room Air Oxygen Flow Rate 0 11/20/24 20:12 11/20/24 20:45 11/20/24 22:36 Temperature 98.8 F 98.2 F Pulse Rate Pulse Rate [Right Pulse Oximeter] 91 97 85 Respiratory Rate 16 16 14 Blood Pressure Blood Pressure [Le ft Arm] 94/52 L 89/51 L Pulse Oximetry 100 99 Oxygen Delivery Me thod Room Air Room Air Oxygen Flow Rate 0 0 11/20/24 22:41 11/21/24 00:29 11/21/24 00:51 Temperature 98.9 F 98.2 F Pulse Rate 84 89 Pulse Rate [Right Pulse Oximeter] Respiratory Rate 14 16 16 Blood Pressure 87/53 L 93/58 L Blood Pressure [Le ft Arm] Pulse Oximetry 99 99 98 Oxygen Delivery Me thod Room Air Room Air Room Air Oxygen Flow Rate 0 0 11/21/24 01:21 11/21/24 01:51 11/21/24 02:21 Temperature 98.3 F 99 F 98.6 F Pulse Rate 77 80 76 Pulse Rate [Right Pulse Oximeter] Respiratory Rate 16 14 16 Blood Pressure 90/54 L 89/52 L 88/56 L Blood Pressure [Le ft Arm] Pulse Oximetry 97 99 99 Oxygen Delivery Ny thod Room Air Room Air Room Air Oxygen Flow Rate 0 0 0 11/21/24 02:37 11/21/24 02:59 11/21/24 03:37 Temperature 98.4 F 98.4 F 98.6 F Pulse Rate 81 80 Pulse Rate [Right Pulse Oximeter] 81 Respiratory Rate 16 16 14 Blood Pressure 87/54 L 88/53 L Blood Pressure [Le ft Arm] 87/54 L Pulse Oximetry 98 98 99 Oxygen Delivery Me thod Room Air Room Air Room Air Oxygen Flow Rate 0 11/21/24 07:45 11/21/24 07:45 11/21/24 07:45 Temperature 98.4 F Pulse Rate Pulse Rate [Right Pulse Oximeter] 91 91 Respiratory Rate 14 18 18 Blood Pressure Blood Pressure [Le ft Arm] 92/63 Pulse Oximetry 97 97 Oxygen Delivery Me thod Room Air Room Air Oxygen Flow Rate 0 0 11/21/24 09:24 Temperature Pulse Rate Pulse Rate [Right Pulse Oximeter] 114 H Respiratory Rate 18 Blood Pressure Blood Pressure [Le ft Arm] 97/60 Pulse Oximetry 95 Oxygen Delivery Me thod Room Air Oxygen Flow Rate 0 Labs Labs: Laboratory Results - last 24 hr 11/20/24 11/20/24 11/20/24 06:38 12:05 15:32 WBC 32.46 H* RBC 3.18 L Hgb 10.0 L Hct 29.8 L MCV 94 MCH 31 MCHC 34 RDW Coeff of Maisha 11.7 Plt Count 332 Neut % (Auto) 92.8 H Lymph % (Auto) 3.1 L [place] % (Auto) 3.1 Eos % (Auto) 0.0 Baso % (Auto) 0.1 Neut # (Auto) 30.10 H Lymph # (Auto) 1.00 [place] # (Auto) 1.00 H Eos # (Auto) 0.00 Baso # (Auto) 0.00 Abs Immat Gran (auto) 0.30 Imm/Tot Granulo (auto) 0.9 Diff Slide Review Acceptable Review VBG pH VBG pCO2 VBG pO2 VBG HCO3 Sodium Potassium Chloride Carbon Dioxide Anion Gap BUN Creatinine Estimated Creat Clear Estimated GFR Glucose Lactate Calcium C-Reactive Protein Lab Acknowledgement Test Added Blood Type A Negative Antibody Screen NEGATIVE Crossmatch ([facility]) See Detail 11/20/24 11/20/24 11/20/24 15:47 18:05 22:59 WBC RBC Hgb 7.8 L* 7.1 L* Hct MCV MCH MCHC RDW Coeff of Maisha Plt Count Neut % (Auto) Lymph % (Auto) [place] % (Auto) Eos % (Auto) Baso % (Auto) Neut # (Auto) Lymph # (Auto) [place] # (Auto) Eos # (Auto) Baso # (Auto) Abs Immat Gran (auto) Imm/Tot Granulo (auto) Diff Slide Review VBG pH 7.363 VBG pCO2 46 VBG pO2 < 30.1 VBG HCO3 26 Sodium 131 L Potassium 4.0 Chloride 101 Carbon Dioxide 27 Anion Gap 3 L BUN 17 Creatinine 0.6 Estimated Creat Clear 116.24 Estimated GFR 122 Glucose 153 H Lactate 1.9 Calcium 8.2 L C-Reactive Protein < 0.5 L Lab Acknowledgement Blood Type Antibody Screen Crossmatch ([facility]) 11/21/24 06:06 WBC 11.17 H RBC 2.50 L Hgb 7.9 L* Hct 23.3 L MCV 93 MCH 32 MCHC 34 RDW Coeff of Maisha 12.0 Plt Count 227 Neut % (Auto) 61.3 Lymph % (Auto) 25.8 [place] % (Auto) 11.4 H Eos % (Auto) 0.7 Baso % (Auto) 0.4 Neut # (Auto) 6.80 Lymph # (Auto) 2.90 [place] # (Auto) 1.30 H Eos # (Auto) 0.10 Baso # (Auto) 0.00 Abs Immat Gran (auto) 0.00 Imm/Tot Granulo (auto) 0.4 Diff Slide Review VBG pH VBG pCO2 VBG pO2 VBG HCO3 Sodium 135 Potassium 3.6 Chloride 107 Carbon Dioxide 27 Anion Gap 1 L BUN 12 Creatinine 0.6 Estimated Creat Clear 116.24 Estimated GFR 122 Glucose 93 Lactate Calcium 8.0 L C-Reactive Protein Lab Acknowledgement Blood Type Antibody Screen Crossmatch ([facility])
== END 2024-11-21 11:00 | disposition home or self-care (01) ==
LOC: OR 06:11 → MEDSURG 15:48
PROVIDERS: Anesthesiology; Family Medicine; Visit Provider Orthopaedic Surgery
PROC: (CPT 27130; principal; 2024-11-20 07:15)
DX: M16.11 Unilateral primary osteoarthritis, right hip (principal); G89.18 Other acute postprocedural pain; D62 Acute posthemorrhagic anemia; E87.1 Hypo-osmolality and hyponatremia; D72.829 Elevated white blood cell count, unspecified; I95.81 Postprocedural hypotension; Z79.82 Long term (current) use of aspirin; Q65.89 Other specified congenital deformities of hip; Z79.01 Long term (current) use of anticoagulants
CPT/HCPCS: 27130; 01214; 36415; 36430; 64450; 73501; 76000; 76942; 80048; 81025; 82803; 83605; 85018; 85025; 86140; 86850; 86900; 86901; 86922; 97110; 97116; 97161; 97165; 97530; 97535; A9270; C1713; C1776; J0665; J0666; J0690; J1100; J1171; J2250; J2371; J2405; J2704; J3010; J3490; J7030; J7120; P9016